=== PATIENT | male | born 1990 | race Caucasian/White ===

== ENCOUNTER 2018-05-06 17:20 | Emergency (ER) | payer OTHER ==
[~2018-05-06] VITALS: Ht 188 cm; Wt 72.9 kg
[2018-05-06 17:38] VITALS: BP 135/60; PULSE 88; RESP 18; TEMP 98.7; O2SAT 97
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
== END 2018-05-06 18:46 | disposition home or self-care (01) ==
LOC: PHEFT 17:20
DX: S90.02XA Contusion of left ankle, initial encounter (principal); S39.012A Strain of muscle, fascia and tendon of lower back, initial encounter; V89.2XXA Person injured in unspecified motor-vehicle accident, traffic, initial encounter; Y92.410 Unspecified street and highway as the place of occurrence of the external cause; I47.1 Supraventricular tachycardia
CPT/HCPCS: 72110; 99283